=== PATIENT | female | born 1995 | race Hispanic/Latino ===

== ENCOUNTER 2018-01-06 17:56 | Emergency (ER) | payer OTHER, BC ==
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
[2018-01-06 20:19] VITALS: BP 145/76; PULSE 80; RESP 17; TEMP 98.5; O2SAT 99
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
== END 2018-01-06 20:18 | disposition home or self-care (01) ==
LOC: H.ER 17:56
DX: S09.90XA Unspecified injury of head, initial encounter (principal); V43.62XA Car passenger injured in collision with other type car in traffic accident, initial encounter; Y92.410 Unspecified street and highway as the place of occurrence of the external cause